=== PATIENT | male | born 1985 | race African-American/Black ===

== ENCOUNTER 2017-08-24 09:48 | Emergency (ER) | payer BC, MEDICAID ==
[~2017-08-24] VITALS: Ht 172.7 cm; Wt 71.0 kg
[2017-08-24] MEDS ORDERED: ACETAMINOPHEN 500MG TABLET PO ONE (13:45)
[2017-08-24 13:58] VITALS: BP 114/71
== END 2017-08-24 13:59 | disposition home or self-care (01) ==
LOC: ER 10:05
DX: G44.209 Tension-type headache, unspecified, not intractable (principal); V43.52XA Car driver injured in collision with other type car in traffic accident, initial encounter; Y93.89 Activity, other specified; Y92.410 Unspecified street and highway as the place of occurrence of the external cause; Y99.8 Other external cause status
CPT/HCPCS: 99282